=== PATIENT | female | born 1995 | race African-American/Black ===

== ENCOUNTER 2024-07-10 21:48 | Emergency (ER) | payer BC, SELFPAY ==
[2024-07-10 21:49] VITALS: BP 196/125
[2024-07-10 22:25] VITALS: BMI 68.9
[2024-07-10 22:29] VITALS: BP 157/81
[2024-07-10 22:52] VITALS: BP 128/58
[2024-07-10 23:12] LABS: ALT (SGPT) 32 U/L (0-35); AST (SGOT) 36 U/L (14-36); Albumin 4.1 g/dl (3.5-5.0); Alkaline Phosphatase 80 U/L (38-126); Blood Urea Nitrogen 13 mg/dl (7-17); Calcium 8.6 mg/dl (8.4-10.2); Carbon Dioxide 33 mmol/L (22-30); Chloride 98 mmol/L (98-107); Estimated Creatinine Clearance > 125 ml/min; Glucose 113 mg/dl (70-99); Potassium 4.1 mmol/L (3.5-5.1); Sodium 140 mmol/L (135-145); Total Bilirubin 0.3 mg/dl (0.2-1.3); Total Protein 7.9 g/dl (6.3-8.2); eGFR > 60.00
--- NOTE | 2024-07-10 23:12 | ED.GENMED ---
History of Present Illness
General
Chief Complaint: Blood Pressure Problem
Source: patient and family
Exam Limitations: none
Time Seen by Provider: 07/10/24 22:28
Nursing documentation reviewed up to this point in time: agreed with
History of Present Illness
History of Present Illness:
Pleasant 28-year-old female presents to the emergency department with high blood pressure. Patient was recently diagnosed with bronchitis. She has been on steroids and antibiotics and now has hypertension. She takes losartan for her hypertension.
Patient does report having a headache which has resolved in triage. Denies fever or chills. Patient does have a history
Past History
Past History
ED Past Medical History: Asthma, HTN and Other (Anemia, abnormal vaginal bleeding)
ED Past Surgical History: Gynecological
Social History
Tobacco: Non-smoker
Alcohol: None
Drug: None
Personal: Single
Living: with family
Review of Systems
Review of Systems
Allergies reviewed?: Yes
All Other Systems: ROS reviewed and negative except as documented in HPI and ROS
Constitutional: Reports no symptoms
EENT: Reports no symptoms
Respiratory: Reports no symptoms
Cardiac: Reports no symptoms
ABD/GI: Reports no symptoms
: Reports no symptoms
Musculoskeletal: Reports no symptoms
Skin: Reports no symptoms
Neurological: Reports no symptoms
Endocrine: Reports no symptoms
Hematologic/Lymphatic: Reports no symptoms
Psychiatric: Reports no symptoms
Phy Exam
General Physical Exam
General Presentation: well appearing
General age: appears stated age
General Skin: warm and dry
General Habitus: obese
General Mental: anxious
General Hydration: appears well hydrated
ENT Exam
ENT Exam: EOMI, pharynx normal, neck supple and normocephalic
Eye Exam
Eye Exam: PERRL, cornea clear and conjunctiva normal
Eye Exam General: PERRL: bilateral and EOM intact: bilateral
Pupil Exam: Bilateral: round and reactive
Retinal Exam: good venous pulsation: Bilateral
Type of Exam: simple
Cardiovascular Exam
Cardiovascular Exam: regular rate/rhythm, no edema, no murmur and normal peripheral pulses
Pulmonary Exam
Pulmonary Exam: lungs clear, no respiratory distress, no rales, no crackles, no rhonchi, no stridor, no wheezing and no cough
Gastrointestinal Exam
Gastrointestinal Exam: normal bowel sounds, non tender, soft, no organomegaly, no pulsatile mass and non distended
Neurological Exam
Neurological Exam: alert, oriented x3, no motor deficits and speech normal
Musculoskeletal Exam
Musculoskeletal Exam: full ROM and no edema
Skin Exam
Skin Exam: normal color, warm/dry, no rash and no petechia
Psychiatric Exam
Psychiatric Exam: normal mood/affect
Course
Orders/Labs/Results
Orders:
Orders
07/10/24 22:36
EKG [Electrocardiogram (*1)] Urgent
Reason for Study: Tachycardia
EKG- Treatment ONCE
07/10/24 22:49
Complete Blood Count/With Diff Urgent
Comprehensive Metabolic Panel Urgent
Troponin I Urgent
07/10/24 23:43
CR Chest - 2 Views Urgent
Comment:
Reason For Exam: htn
Abnormal Lab Results
07/10/24
22:49
WBC 12.4 H 10^3/uL
(4.8-10.8)
Hgb 9.7 L g/dL
(12.0-16.0)
Hct 34.0 L %
(37.0-47.0)
MCV 69.5 L fL
(81.0-99.0)
MCH 19.8 L pg
(27.0-31.0)
MCHC 28.5 L g/dL
(33.0-37.0)
RDW 20.2 H %
(11.5-14.5)
Abs Immat Gran (auto) 0.1 H 10^3/uL
(0-0.05)
Absolute Neuts (auto) 8.2 H 10^3/uL
(1.4-6.5)
Absolute Monos (auto) 0.8 H 10^3/uL
(0.1-0.6)
Carbon Dioxide 33 H mmol/L
(22-30)
Glucose 113 H mg/dl
(70-99)
07/10/24 22:49
07/10/24 22:49
Vital Signs
Initial and Last Documented VS:
Initial Vital Signs
Temp Pulse Resp BP Pulse Ox
98.1 F 112 18 196/125 96
07/10/24 21:49 07/10/24 21:49 07/10/24 21:49 07/10/24 21:49 07/10/24 21:49
Last Documented Vital Signs
Temp Pulse Resp BP Pulse Ox
98.1 F 89 22 151/72 95
07/10/24 21:49 07/10/24 23:45 07/10/24 23:45 07/10/24 23:30 07/10/24 23:45
*Radiology
Radiology exam reviewed: preliminary read by ED provider (Right lower lobe pneumonia)
*Critical Care Note
Total Time (30-74mins, 75-104mins- exclusive of procedures): Not Applicable
Update Note
Update Note:
Hemoglobin is very similar to previous hemoglobin taken 2 years ago. White blood cell count is elevated likely due to steroids.
ED Attending Note
-
Portions of this chart may have been created with voice recognition software.� Occasional wrong word or��sound alike� substitutions may have occurred due to the inherent limitations of voice recognition software.
Discharge Plan
Departure
Patient Disposition: Home (Routine Discharge)
Date of Disposition: 07/10/24
Time of Disposition: 23:43
Patient with high blood pressure during this ER visit?: Yes
Condition: Good
Discharge Problem:
High blood pressure, Pneumonia
Instructions: Pneumonia in adults, High Blood Pressure (DC), BLOOD PRESSURE
Prescriptions:
No Action
naproxen sodium 550 mg Tablet
550 mg PO Q12H PRN (Reason: discomfort)
losartan-hydrochlorothiazide 50-12.5 mg Tablet
1 tab PO DAILY
tranexamic acid 650 mg Tablet
1,300 mg PO TID PRN (Reason: during menses)
fluticasone propion-salmeterol [Advair Diskus] 100-50 mcg/dose Blister With Device
1 inh INHALATION DAILY
ferrous sulfate 325 mg (65 mg iron) tablet
325 mg PO BID Qty: 20 0RF
folic acid 1 mg Tablet
1 mg PO DAILY
venlafaxine 37.5 mg Tablet Extended Release 24hr
37.5 mg PO DAILY
cholecalciferol (vitamin D3) [Vitamin D3] 125 mcg (5,000 unit) Tablet
125 mcg PO DAILY
Trulicity 0.75 mg/0.5 mL Pen Injector
0.75 mg SC QWEEK
Referrals:
Ayaka De Paz DO [Family Provider] -
Activity Restrictions/Additional Instructions:
Please continue to take your doxycycline, the antibiotic prescribed previously
It was a pleasure meeting you and taking part in your care. We hope for your continued healing and wellness.
Please read discharge instructions in their entirety. However, they are for general education and may not describe your exact diagnosis at discharge. Information on your ER visit and medical conditions were discussed with you along with appropriate
follow up information...
If indicated, please take your medications as instructed and indicated on discharge paperwork.
Please schedule a follow up appointment as directed. Call to schedule an appointment
Please return to the emergency department with ANY change in, persisting, or worsening of symptoms. If any of your symptoms do not improve, or persist, or become more severe within 6-12 hours, please return to the emergency department for further
care.
Please return to the emergency department if you develop a headache, neck pain/stiffness, fever greater than 100.4F, chest pain, shortness of breath, persistent nausea, vomiting, slurred speech, difficulty walking, numbness/tingling, weakness, signs
of infection or any other symptoms that are worrisome to you.
If you have any questions or concerns please do not hesitate to call the Hospital at or E-mail me directly at [email or web address]
Interventions
Interventions:
*Risk Screen - Suicide Last Done: 07/10/24 21:49
*General Assessment Last Done: 07/10/24 21:49
*Neglect/Abuse Screening Last Done: 07/10/24 21:49
ED- Fall Risk Assessment Last Done: 07/10/24 22:25
*ED COVID-19 Vaccine History Last Done: 07/10/24 21:49
*Nursing Disposition Last Done: 07/11/24 00:35
ED- Cardiac Assessment Last Done: 07/10/24 22:34
ED- Neurological Assessment Last Done: 07/10/24 22:33
ED- Pulmonary Assessment Last Done: 07/10/24 22:34
Discharge Date and Time
Discharge Date/Time: 07/11/24 00:35
Print Language: ROMANIAN
[2024-07-10 23:14] LABS: Hemoglobin 9.7 g/dL (12.0-16.0); Mean Corp Hgb Conc. 28.5 g/dL (33.0-37.0); Mean Corpuscular Hgb 19.8 pg (27.0-31.0); Mean Corpuscular Volume 69.5 fL (81.0-99.0); Mean Platelet Volume 9.3 fL (7.4-10.4); Platelet Count 304 10^3/uL (130-400); Red Blood Cell Count 4.89 10^6/uL (4.20-5.40); Red Cell Dist. Width 20.2 % (11.5-14.5); White Blood Cell Count 12.4 10^3/uL (4.8-10.8)
[2024-07-10 23:20] LABS: Troponin I < 0.012 ng/ml
[2024-07-10 23:23] LABS: % Basophils 0.2 % (0-2); % Eosinophils 3.3 % (0-6); % Immature Granulocytes 0.4 % (0-0.5); % Lymphocytes 23.4 % (20.5-51.1); % Monocytes 6.4 % (1.7-9.3); % Neutrophils 66.3 % (42.2-75.2); Absolute Eosinophils 0.4 10^3/uL (0-0.7); Absolute Immature Granulocytes 0.1 10^3/uL (0-0.05); Absolute Lymphocytes 2.9 10^3/uL (1.2-3.4); Absolute Monocytes 0.8 10^3/uL (0.1-0.6); Absolute Neutrophils 8.2 10^3/uL (1.4-6.5); Anisocytosis 2+; Hypochromasia 2+; Macrocytosis 1+; Normal RBC Morphology No; Nucleated Red Blood Cells % 0 %
[2024-07-10 23:24] LABS: Ovalocytes Occasional; Polychromasia Occasional; Stomatocytes 1+; Target Cells 1+
[2024-07-10 23:30] VITALS: BP 151/72
== END 2024-07-11 00:35 | disposition home or self-care (01) ==
LOC: EMR 21:48
PROVIDERS: EMERGENCY PHYSICIAN Student in an Organized Health Care Education/Training Program; FAMILY PHYSICIAN Family Medicine
DX: J18.9 Pneumonia, unspecified organism (principal); I10 Essential (primary) hypertension; J45.909 Unspecified asthma, uncomplicated; Z79.899 Other long term (current) drug therapy
CPT/HCPCS: 99285; 71046; 80053; 84484; 85025; 93005